=== PATIENT | male | born 1980 | race Caucasian/White ===

== ENCOUNTER 2016-11-17 07:09 | Day surgery (SDC) | payer MEDICARE, OTHER ==
[~2016-11-17] VITALS: Ht 157.5 cm; Wt 117.5 kg
[2016-11-17] VITALS (10 sets, daily range): BP systolic 103–160; BP diastolic 75–96; PULSE 97–104; RESP 14–22; Ht 157.5 cm; Wt 117.5 kg
[~2016-11-17 07:09] MED LIST: ALPR1TAB2 PO; CEFAZOLIN 2 GM/50 ML (PMX) 50 ML IVPB SCH; LORA-401 PO; LORA1TAB PO; PROPOFOL 200 MG INJ ONE; SOD CHLORIDE 0.9% 1,000 ML IV SCH; TRAM50TA2 PO
[2016-11-17] MEDS ORDERED: SUCCINYLCHOLINE CHLORIDE 100 MG/5 ML SYG IV ONE (07:41)
[2016-11-17] MEDS ORDERED: PROPOFOL 20 ML ONE (07:41)
[2016-11-17] MEDS ORDERED: FLUMAZENIL 0.5 MG INJ ONE (07:41)
[2016-11-17] MEDS ORDERED: MIDAZOLAM 1 MG/ML 2 ML INJ ONE (07:41)
[2016-11-17] MEDS ORDERED: LIDOCAINE 2% (SDV) 5 ML INJ ONE (07:41)
[2016-11-17] MEDS ORDERED: KETAMINE 500 MG INJ ONE (07:42)
[2016-11-17] MEDS ORDERED: DEXAMETHASONE 4 MG/ML 1 ML INJ ONE (07:42)
[2016-11-17] MEDS ORDERED: ONDANSETRON 4 MG INJ ONE (07:42)
[2016-11-17] MEDS ORDERED: OCULAR LUBRICANT 3.5 GM OPH OINT ONE (08:01)
[2016-11-17] MEDS ORDERED: BUSP10TA2 PO (08:14)
[2016-11-17] MEDS ORDERED: LURA80TA PO (08:14)
[2016-11-17] MEDS ORDERED: DIVA500T7 PO (08:14)
[2016-11-17 08:40] LABS: ADD SCAN DIFF NO
[2016-11-17 08:44] LABS: BASOPHILS % 0.4 % (0.0-2.0); EOSINOPHILS # 0.1 10^3/ul (0.0-0.5); EOSINOPHILS % 1.2 % (0.0-7.0); HEMATOCRIT 40.6 % (42.0-52.0); HEMOGLOBIN 13.6 g/dl (14.0-18.0); LYMPHOCYTES # 2.1 10^3/ul (0.8-2.9); LYMPHOCYTES % 25.2 % (15.0-51.0); MEAN CORPUSCULAR HEMOGLOBIN 30.5 pg (29.0-33.0); MEAN CORPUSCULAR HGB CONC 33.5 g/dl (32.0-37.0); MEAN PLATELET VOLUME 10.5 fl (7.4-10.4); MONOCYTE # 0.7 10^3/ul (0.3-0.9); MONOCYTES % 7.9 % (0.0-11.0); NEUTROPHIL # 5.3 10^3/ul (1.6-7.5); NEUTROPHILS % 64.9 % (39.0-77.0); PLATELET COUNT 285 10^3/UL (140-415); RED BLOOD COUNT 4.46 10^6/ul (4.70-6.10); RED CELL DISTRIBUTION WIDTH 12.7 % (11.5-14.5); WHITE BLOOD COUNT 8.2 10^3/ul (4.8-10.8)
[2016-11-17] MEDS ORDERED: LABETALOL HCL 20MG INJ IV PRN (09:00)
[2016-11-17] MEDS ORDERED: HYDROmorphONE (0.2 MG/ML) 10ML SYG IV PRN ×3 (09:00)
[2016-11-17] MEDS ORDERED: ONDANSETRON 4 MG INJ IV PRN (09:00)
[2016-11-17] MEDS ORDERED: FENTAnyl 50 MCG/ML VIAL IV PRN ×3 (09:00)
[2016-11-17] MEDS ORDERED: DIPHENHYDRAMINE 50 MG INJ IV PRN (09:00)
[2016-11-17] MEDS ORDERED: MEPERIDINE 25 MG INJ IV PRN (09:00)
[2016-11-17 09:01] LABS: INR 0.88; PROTIME 11.9 Sec (12.2-14.2); PT RATIO 0.9
[2016-11-17 09:02] LABS: PARTIAL THROMBOPLASTIN TIME 30.2 Sec (25.0-35.0)
[2016-11-17 09:07] LABS: CALCIUM 8.5 mg/dl (8.4-10.2); CREATININE 0.87 mg/dl (0.61-1.24); POTASSIUM 3.7 mmol/L (3.5-5.1)
[2016-11-17] MEDS ORDERED: METOPROLOL 5 MG INJ ONE (10:04)
[2016-11-17] MEDS ORDERED: CEFAZOLIN 1 GM INJ ONE (10:04)
[2016-11-17] MEDS ORDERED: HYDROmorphONE 2 MG/ML SYG ONE (10:19)
[2016-11-17] MEDS ORDERED: BUPIVACAINE 0.25%/EPI (SDV) 30 ML INJ ONE (10:27)
--- NOTE | 2016-11-17 11:28 | OPR ---
DATE OF OPERATION: 11/17/2016 PREOPERATIVE DIAGNOSIS: Perianal pain with drainage and question of cystic lesion. POSTOPERATIVE DIAGNOSIS: Perianal pain and drainage associated with complex fistula (3 fistula trac ts). OPERATION PERFORMED: Anal exam under anesthesia with fistulotomy x3. ANESTHESIA: General. ANESTHESIOLOGIST: Lauren Stoll CRNA SURGEON: Hamzah Murphy MD BOARDER STEAM: Juancarlos Orozco MD INDICATIONS FOR PROCEDURE: The patient is a 36-year-old male who suffers from morbid obesity presen jorge with pain and drainage from his perianal region. The in-office exam demonstrated cystic lesions . It was very difficult due to the patient's girth0 He was counseled as to the need for anal exam under anesthesia to further elucidate diagnosis. He consented and was scheduled for surgery. DESCRIPTION OF PROCEDURE: The patient was brought to the operating theater, placed under general en dotracheal tube anesthesia. He was then put in the prone jackknife position. Buttocks were widely shaved, taped, prepped and draped in usual sterile fashion. Visual examination of the perianal wilberto on revealed a fistula track in the midline. Digital exam of the anal canal did not reveal anal mass . An anal retractor was inserted. In addition to the fistula tract in the perianal region there wa s also 3 areas that appeared to be communicating with this fistula tract several centimeters from th e anal verge on the dermis of the buttocks. One was at approximately the 2 o'clock, another at the 3 o'clock and another at the 4 o'clock. They were all cannulated and progressed towards the midline fistula tract in accordance with Goodsall's rule. The midline tract was cannulated and found to pr oceed submucosally rather into the anal canal at a distance of approximately 3 cm beyond the anal ve rge. An incision was made over this lacrimal duct opening the fistula tract. The second track at 2 o'clock was then also opened. Dr. Murphy made the decision that since the remaining 2 tracts most l ikely communicated at some point with the tract which had already been opened instead of fully openi ng them tissue preservation was accomplished by making 2 cm incisions to facilitate opening the exte rnal opening of the fistula tracts on the buttocks and all four fistula tracts were irrigated with f irst Betadine and then hydrogen peroxide. Minimal bleeding was controlled with cautery. The entire area was infiltrated with 0.5% Marcaine local anesthetic with epinephrine, and a sterile dressing w as applied. The patient tolerated the procedure well. The estimated blood loss was 10 mL. There w ere no complications and the patient was transported in stable condition to the recovery room. Dictated By: HAMZAH MURPHY MD TL/MARANDA Conf#: [id number] DID#: [id number] CC: JENA OROZCO MD;*EndCC*
--- NOTE | 2016-11-17 15:42 | RADRPT ---
Vent Rate: 93 bpm RR Interval: 0 msec UT Interval: 134 msec QRS Duration: 98 msec QT Interval: 380 msec QTC Interval: 472 msec P-R-T [place]: 34 - 23 - 48 degrees Normal sinus rhythm Nonspecific T wave abnormality Prolonged QT Abnormal ECG Electronically Signed By: Ritchie Martin [id number]
== END 2016-11-17 12:34 | disposition home or self-care (01) ==
LOC: SDS 07:09
PROVIDERS: ATTEND Surgery Surgical Oncology
DX: K60.3 Anal fistula (principal); I10 Essential (primary) hypertension; E66.01 Morbid (severe) obesity due to excess calories; Z68.42 Body mass index [BMI] 45.0-49.9, adult
CPT/HCPCS: 46270; 80048; 85025; 85610; 85730; 93005; J0330; J0690; J1100; J1170; J2250; J2405; J3010